=== PATIENT | female | born 1950 | race Caucasian/White ===

== ENCOUNTER → 2020-10-27 | Outpatient (CLI) | payer OTHER | LOC: ORTHO 14:10 | PROVIDERS: ATTEND Orthopaedic Surgery | DX: M17.0 Bilateral primary osteoarthritis of knee (principal) | CPT/HCPCS: 99203 ==

== ENCOUNTER → 2020-11-17 | Outpatient (CLI) | payer OTHER | LOC: ORTHO 14:30 | PROVIDERS: ATTEND Orthopaedic Surgery | DX: M17.4 Other bilateral secondary osteoarthritis of knee (principal); M25.511 Pain in right shoulder ==